=== PATIENT | female | born 1965 | race Caucasian/White ===

== ENCOUNTER 2018-01-22 17:02 | Emergency (ER) | payer MEDICAID ==
--- NOTE | 2018-01-22 17:47 | EDPHY ---
H & P Stated Complaint: Lower abdominal pain x 1 week. Colonoscopy 12/29. Time Seen by Provider: 01/22/18 17:24 HPI/ROS: CHIEF COMPLAINT: Lower abdominal cramps with greasy stools HISTORY OF PRESENT ILLNESS: This is a previously healthy 52-year-old female who is approximately 10 days out from her most recent colonoscopy which was part of the cancer screening at age 52. Of note, she was healthy fine for the entire week, back to her normal diet and stool habit. Only to 3 days ago when she became ill. Of note, the colonoscopy showed precancerous lesions on that she has to have a follow-up colonoscopy in 18 months. Some 3 days ago she started having lower abdominal distress of a cramping nature much as she would experience back when she several ensue., which has stopped for about a year. Of note is also that she is having no vaginal bleeding. The pain is supple come in waves lasting at several hours and subside when she passed gas or had a stool. Her stools themselves have been small in nature and somewhat more increased than usual. She describes the stool as being formed but slimy. No vomiting Travel: None Others: Her son has diarrhea Antibiotics: She had a course of Cipro approximately 5 weeks ago for UTI Bad Food: She actually wonders if it is something bad the back of the Fridge she should have thrown out Bad Water: None Recent Surgery: None She takes p.r.n. Lasix for swelling approximately 4 to 5 times a week. Whereas she did have hypokalemia at this time of her kidney infection about a year and half ago, she has not any supplemental potassium while on the Lasix. REVIEW OF SYSTEMS: Constitutional: No fever, no chills. Eyes: No discharge No diplopia ENT: No sore throat. Cardiovascular: No chest pain, no palpitations. Respiratory: No cough, shortness of breath, or wheezing. Gastrointestinal: See above Genitourinary: No hematuria or frequency. Musculoskeletal: No back pain. Skin: No rashes. Neurological: No headache. A 10 system review of systems was performed and is negative except for the noted findings in the HPI. Source: Patient Exam Limitations: No limitations - Personal History LMP (Females 10-55): Post Menopausal Current Tetanus Diphtheria and Acellular Pertussis (TDAP): Yes Tetanus Vaccine Date: within 10 years - Medical/Surgical History Hx Asthma: No Hx Chronic Respiratory Disease: No Hx Diabetes: No Hx Cardiac Disease: No Hx Renal Disease: No Hx Cirrhosis: No Hx Alcoholism: No Hx HIV/AIDS: No Hx Splenectomy or Spleen Trauma: No Other PMH: Polyps in colon, cholecystectomy, R hand surgery, peripheral edema - Social History Smoking Status: Current every day smoker Alcohol Use: None Drug Use: None - Physical Exam Exam: General Appearance: Alert, no distress. Afebrile. Normal phonation. No respiratory distress. Eyes: Pupils equal and round no pallor or injection. No icterus ENT, Mouth: Mucous membranes moist. Pharynx without erythema or exudate. TM Clear. Neck: No adenopathy. Supple. No JVD. Trachea in midline. Respiratory: There are no retractions, lungs are clear to auscultation. Cardiovascular: Regular rate and rhythm. Abdomen: Soft, nontender even over the suprapubic region, the site of her cramping. No masses, bowel sounds normal. Neurological: Ox3. No motor weakness. Sensation intact. Gait nl. Skin: Warm and dry, no rashes. Musculoskeletal: No joint swelling. Extremities: No edema. Homans sign negative. No cords. Psychiatric: Normal affect. Patient is oriented X 3. There is no agitation Constitutional: Initial Vital Signs Temperature (C) 36.8 C 01/22/18 17:15 Heart Rate 100 01/22/18 17:15 Respiratory Rate 16 01/22/18 17:15 Blood Pressure 137/84 H 01/22/18 17:15 O2 Sat (%) 95 01/22/18 17:15 O2 Delivery Mode Room Air Allergies/Adverse Reactions: latex Allergy (Verified 01/22/18 17:17) Pt reports rash Home Medications: Medication Instructions Recorded Dicyclomine [Bentyl 20 MG (*)] 20 mg PO QID #10 tab 01/22/18 Flonase Allergy Relief 01/22/18 Lasix 01/22/18 Potassium Bicarbonate/Cit AC 25 meq PO DAILY #3 tablet.eff 01/22/18 [Klor-Con-Ef 25 Meq Tab Eff] Medical Decision Making ED Course/Re-evaluation: On initial point of care studies: WBC minimally elevated 10 Point of care potassium 2.9. Renal function normal Sodium normal Thus, she was given 60 mg of p.o. potassium. Thus a basic was sent down to the [facility] which resulted in the following: Potassium 3.2. Normal renal function. Overtime she was unable to provide a stool specimen. She has a wrist between the poor food, duration of illness, and use of antibiotics recently. However there is nothing did mandate prescribed antibiotic prescriber this point time. She was see Michael for symptomatic management. - Data Points Laboratory Results: Laboratory Results 01/22/18 18:28 01/22/18 01/22/18 01/22/18 18:28 17:39 17:37 POC Sodium 144 mEq/L mEq/L (135-145) Sodium 141 mEq/L mEq/L (135-145) POC Potassium 2.9 mEq/L L mEq/L (3.3-5.0) Potassium 3.2 mEq/L L mEq/L (3.3-5.0) POC Chloride 104.0 mEq/L mEq/L (97-110) Chloride 105 mEq/L mEq/L (97-110) Carbon Dioxide 27 mEq/l mEq/l (22-31) POC Total CO2 25 mEq/L mEq/L (22-31) Anion Gap 9 mEq/L mEq/L (8-16) POC BUN 8 mg/dL mg/dL (7-23) BUN 10 mg/dL mg/dL (7-23) Creatinine 0.8 mg/dL mg/dL (0.6-1.0) POC Creatinine 0.8 mg/dL mg/dL (0.6-1.0) Estimated GFR > 60 Glucose 91 mg/dL mg/dL (70-100) POC Glucose 105 mg/dL H mg/dL (70-100) POC Lactic Acid Chavo 1.0 mmol/L mmol/L (0.7-2.1) POC Calcium 9.9 mg/dL mg/dL (8.5-10.4) Calcium 9.7 mg/dL mg/dL (8.5-10.4) Medications Given: Discontinued Medications Potassium Chloride (Klor Packets) 60 meq PO EDNOW ONE Stop: 01/22/18 18:11 Last Admin: 01/22/18 18:23 Dose: 60 meq Point of Care Test Results: CBC CBC Collection Date 01/22/18 WBC 10.0 RBC 5.03 HGB 15.9 HCT 46.3 PLT 212 Neut # 6.6 Neut 66.0 LYMPH # 3.1 LYMPH 30.9 Other WBC # 0.3 Other WBC 3.1 MCV 92.0 Chemistry 01/22/18 17:37 POC Sodium 144 mEq/L mEq/L (135-145) POC Potassium 2.9 mEq/L L mEq/L (3.3-5.0) POC Chloride 104.0 mEq/L mEq/L (97-110) POC Total CO2 25 mEq/L mEq/L (22-31) POC BUN 8 mg/dL mg/dL (7-23) POC Creatinine 0.8 mg/dL mg/dL (0.6-1.0) POC Glucose 105 mg/dL H mg/dL (70-100) POC Calcium 9.9 mg/dL mg/dL (8.5-10.4) Blood Gas/Lactic Acid-Venous 01/22/18 17:39 POC Lactic Acid Chavo 1.0 mmol/L mmol/L (0.7-2.1) Basic Metabolic Panel BMP Collection Date 01/22/18 BMP Collection Time 17:34 Departure - Departure Disposition: Home, Routine, Self-Care Clinical Impression: Hypokalemia Abdominal pain Qualifiers: Abdominal location: lower abdomen, unspecified Qualified Code(s): R10.30 - Lower abdominal pain, unspecified Condition: Good Instructions: Acute Abdominal Pain (ED) Additional Instructions: Submit a stool specimen 1 year able. Taken to [facility] ER for to be processed We will send home with cups in order to bring the specimen in In the meantime, no changes unusual diet however, due avoid coffee. If he started developing fever or blood in the stools return immediately You do not need to take Bentyl, however it will help with the intensity of the cramps that she experience as well as the frequency. Hold the Lasix for now, until you see your doctor in 3 days for a repeat Potassium check. See her doctor in 3 days. Since her doctor is not listed in our computer system we have given you the outpatient medicine doctor was available on-call. Of course, see her regular doctor however we want to make sure that there is somewhat available to see you in a short time duration such as Thursday as requested. Consider this referral a backup. Referrals: NONE *PRIMARY CARE P,. [Primary Care Provider] - As per Instructions Abhijit Martinez, [Doctor of Osteopathy] - As per Instructions Prescriptions: Dicyclomine [Bentyl 20 MG (*)] 20 mg PO QID #10 tab Potassium Bicarbonate/Cit AC [Klor-Con-Ef 25 Meq Tab Eff] 25 meq PO DAILY #3 tablet.eff
[2018-01-22] MEDS ORDERED: POTASSIUM CL 20 MEQ PKT PO ONE (18:10)
[2018-01-22 21:05] VITALS: BP 92/63
--- NOTE | 2018-01-23 00:11 | CPEKG ---
Test Reason : OPEN Blood Pressure : / mmHG Vent. Rate : 088 BPM Atrial Rate : 089 BPM P-R Int : 168 ms QRS Dur : 090 ms QT Int : 389 ms P-R-T Axes : 048 036 042 degrees QTc Int : 471 ms Sinus rhythm Abnormal R-wave progression, early transition Confirmed by Vijay Medeiros ([id number]) on 01/23/2018 12:10:26 AM Referred By: Confirmed By:Vijay Medeiros
== END 2018-01-22 20:43 | disposition home or self-care (01) ==
LOC: CED 17:02
DX: E87.6 Hypokalemia (principal); R10.84 Generalized abdominal pain
CPT/HCPCS: 80048-PO; 83605-PO

== ENCOUNTER 2018-06-20 08:24 | Emergency (ER) | payer SELFPAY ==
--- NOTE | 2018-06-20 08:31 | EDPHY ---
H & P Time Seen by Provider: 06/20/18 08:30 HPI/ROS: CHIEF COMPLAINT: Sore throat HISTORY OF PRESENT ILLNESS: This is a 52-year-old female with 1 week of sore throat and malaise. She now has a nonproductive cough. She reports subjective fever. She has had some mild maxillary sinus pain and nasal congestion. No sinus drainage. No earache. She occasionally has headache. Yesterday she had nausea but no vomiting. She has not had abdominal pain, diarrhea, or dysuria. She did not receive an influenza vaccination this year. REVIEW OF SYSTEMS: A ten system review of systems was performed and is negative with the exception of the items mentioned in the HPI. Past medical history: Lower extremity edema Past surgical history: Cholecystectomy Family history: Grandmother of alcoholic cirrhosis. Mother of complications related to fatty liver; she did not use alcohol. Social history: She lives with her 17-year-old son. She works in a gas station. She does not use alcohol or illicit drugs. She smokes 1/2 pack of cigarettes daily, this is a decrease over the past month. General Appearance: Alert. Vital signs reviewed. Afebrile. Blood pressure 122/87. Eyes: Pupils equal and round, no conjunctival injection, no discharge. Anicteric. ENT, Mouth: Mucous membranes are moist, mild oropharyngeal erythema without exudates or edema. Edentulous. External auditory canals and tympanic membranes normal bilaterally. No sinus tenderness to percussion. Neck: No lymphadenopathy, supple. Respiratory: Lungs are clear to auscultation; no wheezes, rales, or rhonchi. Cardiovascular: Regular rate and rhythm; no murmur, rub, or gallop. Gastrointestinal: Abdomen is soft and nontender, no masses or organomegaly, bowel sounds normal. Skin: Warm and dry, no rashes on exposed skin, normal color. Back: No CVAT. Extremities: No lower extremity edema, no calf tenderness or swelling. Neurological: Alert and oriented. Moving all four extremities easily and equally. Psychiatric: Normal affect. - Personal History Tetanus Vaccine Date: within 10 years - Medical/Surgical History Hx Asthma: No Hx Chronic Respiratory Disease: No Hx Diabetes: No Hx Cardiac Disease: No Hx Renal Disease: No Hx Cirrhosis: No Hx Alcoholism: No Hx HIV/AIDS: No Hx Splenectomy or Spleen Trauma: No Other PMH: Polyps in colon, cholecystectomy, R hand surgery, peripheral edema - Social History Smoking Status: Current every day smoker Constitutional: Initial Vital Signs Temperature (C) 36.3 C 06/20/18 08:32 Heart Rate 75 06/20/18 08:32 Respiratory Rate 18 06/20/18 08:32 Blood Pressure 122/87 H 06/20/18 08:32 O2 Sat (%) 96 06/20/18 08:32 O2 Delivery Mode Room Air Allergies/Adverse Reactions: latex Allergy (Verified 06/20/18 08:30) Pt reports rash Home Medications: Medication Instructions Recorded Flonase Allergy Relief 01/22/18 Lasix 01/22/18 Potassium Bicarbonate/Cit AC 25 meq PO DAILY #3 tablet.eff 01/22/18 [Klor-Con-Ef 25 Meq Tab Eff] Medical Decision Making ED Course/Re-evaluation: 52-year-old female with sore throat no other signs/symptoms of viral respiratory illness. This could be a mild influenza. I do not see a benefit in testing for influenza at this point in time. I am recommending symptomatic treatment with [id number] herbal teas, throat lozenges, and pain/ antipyretic medications. We reviewed the danger signs that should prompt her to be re-evaluated. She will follow up with her primary care physician as needed. I have counseled her on smoking cessation. Differential Diagnosis: I considered a differential diagnosis that includes but is not limited to upper respiratory infection, bronchitis, viral or bacterial pharyngitis, sinusitis, influenza, and pneumonia. - Data Points Medications Given: Discontinued Medications Acetaminophen (Tylenol) 650 mg PO EDNOW ONE Stop: 06/20/18 08:53 Last Admin: 06/20/18 08:53 Dose: 650 mg Departure - Departure Disposition: Home, Routine, Self-Care Clinical Impression: Viral syndrome Condition: Good Instructions: Viral Syndrome (ED) Additional Instructions: This would be a good time to quit smoking completely. Adult Pain & Fever Control: We recommend Acetaminophen (Tylenol) and Ibuprofen (Motrin,Advil) for pain and fever control. When fever is high or pain severe, both drugs can be used at the same time, but at different intervals. Please note the time differences. Your dose is: Acetaminophen 650mg every 4 to 6 hours Ibuprofen for hermg every 6 hours with food OR Note: do not take Acetaminophen with Hydrocodone (Vicodin, Lortab) or Oycodone (Percocet). These medications also contain Acetaminophen. No more than 3000mg of Acetaminophen should be taken in 24 hours (for an adult). Try [place] Throat Coat Tea with honey--this soothes your sore throat. Use over the counter throat lozenges. Follow up with Dr. Samantha Medley as needed. You can let your employer know that you were seen in the emergency department today. I believe that you should be excused from work 06/19/2018. Referrals: [facility] [Outside] - As per Instructions Stand Alone Forms: Work Excuse
[2018-06-20 08:33] VITALS: BP 122/87
[2018-06-20] MEDS ORDERED: ACETAMINOPHEN 325 MG TAB ONE (08:51)
[2018-06-20] MEDS ORDERED: ACETAMINOPHEN 325 MG TAB PO ONE (08:52)
== END 2018-06-20 09:00 | disposition home or self-care (01) ==
LOC: CED 08:24
DX: B34.9 Viral infection, unspecified (principal); F17.200 Nicotine dependence, unspecified, uncomplicated; Z90.49 Acquired absence of other specified parts of digestive tract; Z86.010 Personal history of colon polyps
CPT/HCPCS: 99283-ER